=== PATIENT | male | born 1970 | race Caucasian/White ===

== ENCOUNTER 2018-05-21 06:27 | Emergency (ER) | payer SELFPAY ==
[~2018-05-21] VITALS: Ht 170.2 cm; Wt 109.0 kg
[2018-05-21 06:29] VITALS: BP 126/84
[2018-05-21] MEDS ORDERED: DiphenhydrAMINE HCL 25 MG CAPSULE PO ONE (07:30)
[2018-05-21] MEDS ORDERED: PredniSONE 20 MG TABLET PO ONE (07:30)
== END 2018-05-21 07:42 | disposition home or self-care (01) ==
LOC: EMS 06:32
DX: K12.2 Cellulitis and abscess of mouth (principal); J45.909 Unspecified asthma, uncomplicated
CPT/HCPCS: 99283; J7512